=== PATIENT | male | born 1990 | race Caucasian/White ===

== ENCOUNTER 2017-10-18 00:22 | Emergency (ER) | payer SELFPAY ==
[~2017-10-18] VITALS: Ht 188 cm; Wt 109.0 kg
[2017-10-18] MEDS ORDERED: KETOROLAC 60MG/2ML VIAL IM ONE (02:00)
[2017-10-18 02:30] VITALS: BP 145/78
== END 2017-10-18 02:51 | disposition home or self-care (01) ==
LOC: ER 00:22
DX: M54.2 Cervicalgia (principal)
CPT/HCPCS: 96372; 99283; J1885; L0172